=== PATIENT | female | born 1950 | race Caucasian/White ===

== ENCOUNTER 2021-03-14 08:01 | Day surgery (SDC) | payer MEDICARE, OTHER ==
[2021-03-11 11:04] LABS: COVID AG,FIA SOURCE NASOPHARYNGEAL
[~2021-03-14] VITALS: Ht 157.5 cm; Wt 105.9 kg
[~2021-03-14 08:01] MED LIST: AMLO2.5T96 PO; ASPI-1450 PO; ATOR40TA28 PO; FAMO20 PO; GABA-1181 PO; INSLAN SQ; INSNOV SQ; LOSA50TA37 PO; METF-960 PO; METO50 PO; OXYB5TAB20 PO; SODIUM CHLORIDE 0.9% 1,000 ML IV ONE; SODIUM CHLORIDE 0.9% 1,000 ML ONE
[2021-03-14 08:55] LABS: GLUCOMETER DEV NAME(LOC) SDS.; GLUCOSE,POINT OF CARE 118 MG/DL (70-110)
[2021-03-14] MEDS ORDERED: PROPOFOL 1% 20 ML VIAL IVP ONE (12:00)
[2021-03-14] MEDS ORDERED: LIDOCAINE/PF 2% 5 ML VIAL IM ONE (12:00)
== END 2021-03-14 11:10 | disposition home or self-care (01) ==
LOC: SURGERY 08:01
PROVIDERS: ATTEND Student in an Organized Health Care Education/Training Program
DX: K29.50 Unspecified chronic gastritis without bleeding (principal); M19.90 Unspecified osteoarthritis, unspecified site; E78.00 Pure hypercholesterolemia, unspecified; E66.01 Morbid (severe) obesity due to excess calories; I10 Essential (primary) hypertension; Z90.710 Acquired absence of both cervix and uterus; Z98.890 Other specified postprocedural states; Z90.721 Acquired absence of ovaries, unilateral; Z79.899 Other long term (current) drug therapy
CPT/HCPCS: 43239; 82962; 87426; 88305; 88312; 88313; C1769; C9803; J2704; J3490; J7030